=== PATIENT | male | born 1965 | race Caucasian/White ===

== ENCOUNTER 2017-07-07 18:45 | Emergency (ER) | payer BC ==
--- NOTE | 2017-07-07 19:52 | ER Document Report ---
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 He was seen at [facility] in the x-rayed the shoulder and elbow. He also has left periscapular back pain which started after the injury. He wants to know why it still hurts. Associated Symptoms: None Exacerbated by: Movement Relieved by: Denies Recently seen / treated by doctor: Yes - 3 weeks ago [facility] - ROS ROS below otherwise negative: Yes Systems Reviewed and Negative: Yes All other systems reviewed and negative Past Medical History - General Information source: Patient - Social History Smoking Status: Current Every Day Smoker Frequency of alcohol use: None Drug Abuse: None Lives with: Spouse/Significant other Family History: Reviewed & Not Pertinent - Medical History Medical History: Negative Surgical Hx: Negative Vertical Provider Document - CONSTITUTIONAL Agree With Documented VS: Yes Exam Limitations: No Limitations General Appearance: No Apparent Distress - INFECTION CONTROL TRAVEL OUTSIDE OF THE [place] IN LAST 30 DAYS: No - HEENT HEENT: Normocephalic - NECK Neck: Supple - mild tender lower c spine midline - RESPIRATORY Respiratory: Breath Sounds Normal, No Respiratory Distress O2 Sat by Pulse Oximetry: 97 - CARDIOVASCULAR Cardiovascular: Regular Rate, Regular Rhythm - BACK Back: Normal Inspection - MUSCULOSKELETAL/EXTREMETIES Musculoskeletal/Extremeties: Tender - proximal humerus and anterior lateral elbow Notes: limits adbuction of shoulder due to pain, FROM elbow - NEURO Level of Consciousness: Awake, Alert Motor/Sensory: No Motor Deficit, No Sensory Deficit - DERM Integumentary: Warm, Dry Course - Re-evaluation Re-evalutation: 07/07/17 20:56 CT shows degenerative disc disease that is mild in the cervical spine, Arity adjacent to the proximal left humerus which could be related to an avulsion injury according to the radiologist I will put the patient in a sling and referred to orthopedics. The injury did occur 3 weeks ago. Elbow x-ray is negative. - Vital Signs Vital signs: Temp Pulse Resp BP Pulse Ox 98.2 F 77 16 156/104 H 97 07/07/17 18:52 07/07/17 18:52 07/07/17 18:52 07/07/17 18:52 07/07/17 18:52 Discharge - Discharge Clinical Impression: persistant left elbow and shoulder pain Condition: Good Disposition: HOME, SELF-CARE Instructions: Shoulder Injury ([facility]), Temporary Sling ([facility]) Additional Instructions: warm compress sling see the orthopedic doctor Referrals: BARBY COPE MD [ACTIVE STAFF] - Follow up tomorrow (call for appointment tomorrow)
--- NOTE | 2017-07-07 20:19 | RADIOLOGY REPORT (SQ) ---
EXAM DESCRIPTION: CT CERVICAL SPINE WITHOUT COMPLETED DATE/TIME: 07/07/2017 8:10 pm REASON FOR STUDY: injury, hyperextended neck COMPARISON: None. TECHNIQUE: Axial images acquired through the cervical spine without intravenous contrast. Images re viewed with lung, soft tissue and bone windows. Reconstructed coronal and sagittal MPR images review ed. Images stored on PACS. All CT scanners at this facility use dose modulation, iterative reconstruction, and/or weight based d osing when appropriate to reduce radiation dose to as low as reasonably achievable (ALARA). [facility]: Dose Right [facility]: CareDose [facility]: Dose Right [facility]: Teradose 4D [facility]: [employer] RADIATION DOSE: CT Rad equipment meets quality standard of care and radiation dose reduction techniq ues were employed. CTDIvol: 15.4 mGy. DLP: 352 mGy-cm. mGy. LIMITATIONS: None. FINDINGS: ALIGNMENT: Anatomic. MINERALIZATION: Normal. VERTEBRAL BODIES: No fractures or dislocation. DISCS: Mild disc space narrowing with osteophytes, particularly at C5-C6. FACETS, LATERAL MASSES, POSTERIOR ELEMENTS: No fractures. No dislocation. No acute findings. HARDWARE: None in the spine. VISUALIZED RIBS: No fractures. LUNG APICES AND SOFT TISSUES: No significant or acute findings. OTHER: No other significant finding. IMPRESSION: MILD DEGENERATIVE DISC DISEASE. NO ACUTE FINDINGS. TECHNICAL DOCUMENTATION: JOB ID: [id number] Quality ID # [id number]: Final reports with documentation of one or more dose reduction techniques (e.g., Au tomated exposure control, adjustment of the mA and/or kV according to patient size, use of iterative reconstruction technique) 2010 [employer]- All Rights Reserved
--- NOTE | 2017-07-07 20:27 | RADIOLOGY REPORT (SQ) ---
EXAM DESCRIPTION: ELBOW LEFT OVER 2 VIEWS COMPLETED DATE/TIME: 07/07/2017 8:15 pm REASON FOR STUDY: injury, hyperextended neck COMPARISON: None. NUMBER OF VIEWS: Four views. TECHNIQUE: AP, lateral, and both oblique radiographic images acquired of the left elbow. LIMITATIONS: None. FINDINGS: MINERALIZATION: Normal. BONES: No acute fracture or dislocation. No worrisome bone lesions. JOINT: No effusion. SOFT TISSUES: No soft tissue swelling. No foreign body. OTHER: No other significant finding. IMPRESSION: NEGATIVE STUDY OF THE LEFT ELBOW. NO RADIOGRAPHIC EVIDENCE OF ACUTE INJURY. TECHNICAL DOCUMENTATION: JOB ID: [id number] [employer]- All Rights Reserved
--- NOTE | 2017-07-07 20:29 | RADIOLOGY REPORT (SQ) ---
EXAM DESCRIPTION: SHOULDER LEFT 2 OR MORE VIEWS COMPLETED DATE/TIME: 07/07/2017 8:15 pm REASON FOR STUDY: injury, hyperextended neck COMPARISON: None. NUMBER OF VIEWS: Three views. TECHNIQUE: Internal rotation, external rotation, and Y view images acquired of the left shoulder. LIMITATIONS: None. FINDINGS: MINERALIZATION: Normal. BONES: Irregularity adjacent to the greater tuberosity. Otherwise intact. JOINTS: No dislocation. VISUALIZED LUNGS AND RIBS: No pneumothorax. No rib fracture. SOFT TISSUES: No radiopaque foreign body. OTHER: No other significant finding. IMPRESSION: IRREGULARITY ADJACENT TO THE GREATER TUBEROSITY, POSSIBLY RELATED TO AVULSION INJURY. N O OTHER SIGNIFICANT FINDINGS. TECHNICAL DOCUMENTATION: JOB ID: [id number] [employer]- All Rights Reserved
[2017-07-07] MEDS ORDERED: HYDROCODONE/ACETAMINOPHEN 5-325 MG (6 TAB/ER DISP) PO PRN (21:03)
[2017-07-07 21:17] VITALS: BP 156/102
== END 2017-07-07 21:17 | disposition home or self-care (01) ==
LOC: ER 18:45
DX: M25.512 Pain in left shoulder (principal); M25.522 Pain in left elbow; W11.XXXA Fall on and from ladder, initial encounter; Y93.89 Activity, other specified; M50.322 Other cervical disc degeneration at C5-C6 level; F17.200 Nicotine dependence, unspecified, uncomplicated
CPT/HCPCS: 72125; 99284